=== PATIENT | female | born 1980 | race American Indian/Alaskan Native ===

== ENCOUNTER 2016-07-21 10:23 | Emergency (ER) | payer SELFPAY ==
[2016-07-21 11:05] LABS: Urine Drugs of Abuse Note Disclamer
--- NOTE | 2016-07-21 11:05 | Emergency Department Report ---
Chief Complaint: Dizziness Stated Complaint: CHEST PAIN Time Seen by Provider: 07/21/16 10:58 - HPI History of Present Illness: 35-year-old female presents today with heart fluttering 4 days that comes and goes. Positive for dizziness today. Positive for shortness of breath. Denies history of anxiety. Denies chest pain, abdominal pain, nausea, vomiting. - ROS Review of Systems: Per HPI - Exam Vital Signs: Vital Signs 07/21/16 10:36 Temperature 98.2 F Pulse Rate 80 Respiratory 20 Rate Blood Pressure 119/81 O2 Sat by Pulse 100 Oximetry Physical Exam: General: 35-year-old female in mild distress. Well-developed, well-nourished. CV: Regular rate and rhythm. Lungs: Clear to auscultation bilaterally. MSE screening note: Focused history and physical exam performed. Due to findings the following was ordered: ED Disposition for MSE Condition: Stable Referrals: PRIMARY CARE, [Primary Care Provider] - 3-5 Days
[2016-07-21 11:26] LABS: Basophils % (Auto) 1.4 % (0.0-1.8); Eosinophils % (Auto) 5.7 % (0.0-4.3); Hematocrit 38.5 % (30.3-42.9); Hemoglobin 12.5 gm/dl (10.1-14.3); Mean Corpuscular HGB Conc 33 % (30-34); Mean Corpuscular Hemoglobin 30 pg (28-32); Mean Corpuscular Volume 91 fl (79-97); Platelet Count 181 K/mm3 (140-440); Red Blood Count 4.23 M/mm3 (3.65-5.03); Red Cell Distribution Width 13.8 % (13.2-15.2); White Blood Count 6.7 K/mm3 (4.5-11.0)
[2016-07-21 11:27] LABS: Bilirubin,Urine NEG (Negative); Blood,Urine NEG (Negative); Ketones,Urine NEG (Negative); Leukocyte Esterase,Urine NEG (Negative); Mucus,Urine FEW /HPF; Nitrite,Urine NEG (Negative); Protein,Urine <15 mg/dL mg/dL (Negative); Urobilinogen,Urine < 2.0 mg/dL (<2.0)
[2016-07-21 11:33] LABS: Anion Gap 16 mmol/L; BUN/Creatinine Ratio 14.28; Blood Urea Nitrogen 10 mg/dL (7-17); Calcium 9.3 mg/dL (8.4-10.2); Carbon Dioxide 25 mmol/L (22-30); Chloride 103.2 mmol/L (98-107); Glucose 92 mg/dL (65-100); Potassium 4.6 mmol/L (3.6-5.0); Sodium 140 mmol/L (137-145)
--- NOTE | 2016-07-21 12:07 | XRay Report ---
Chest 2 views: History: Anxiety. Findings: Normal cardiomediastinal silhouette. Trachea is midline. No consolidation, pneumothorax or pleural effusion. Impression: No acute cardiopulmonary findings.
--- NOTE | 2016-07-21 19:11 | Emergency Department Report ---
HPI - General Chief Complaint: Dizziness Time Seen by Provider: 07/21/16 18:18 - HPI HPI: The patient is a 35-year-old female presents for evaluation of chest pain. The patient reports chest pain for the past 4 days, one off, pounding in quality, midsternal in location, 10/10 in severity when present, lasting for constant periods of 3-5 minutes at a time, self-resolving. The patient states that she believes her pain is secondary to anxiety. The patient denies trauma to the chest, fever, neck pain, parasthesias, dyspnea, cough, hemoptysis, palpitations , dizziness, syncope, unilateral leg swelling, calf muscle pain. Patient also denies cocaine or other stimulant use, history of DVT or PE, recent immobilization, or history of cancer. ED Past Medical Hx - Past Medical History Previous Medical History?: Yes Additional medical history: BOILS - Surgical History Past Surgical History?: Yes Additional Surgical History: c section - Social History Smoking Status: Current Every Day Smoker Substance Use Type: Alcohol - Medications Home Medications: Home Medications Medication Instructions Recorded Confirmed Last Taken Type Diazepam Tab [Valium] 2 mg PO Q8HR PRN #10 tablet 07/21/16 Unknown Rx ED Review of Systems ROS: Stated complaint: CHEST PAIN Other details as noted in HPI Constitutional: denies: fever ENT: denies: throat or neck pain Respiratory: denies: cough, shortness of breath Cardiovascular: reports chest pain Endocrine: denies unexplained weight loss or gain Gastrointestinal: denies: abdominal pain, nausea Genitourinary: denies: dysuria Musculoskeletal: denies: leg swelling Skin: denies: rash Neurological: denies: headache Hematological/Lymphatic: denies: easy bleeding or easy bruising Psych: denies sadness or hopelessness Physical Exam - Physical Exam Vital Signs: Vital Signs 07/21/16 07/21/16 07/21/16 10:36 18:44 18:45 Temperature 98.2 F 98.6 F Pulse Rate 80 74 Respiratory 20 16 16 Rate Blood Pressure 119/81 Blood Pressure 134/87 [Right] O2 Sat by Pulse 100 100 Oximetry Physical Exam: General: well-nourished, well-developed, no acute distress Head: Normocephalic, atraumatic Eyes: normal sclera ENT: Mucous membranes are pink and moist Neck: trachea midline, neck supple, No neck stiffness, no cervical adenopathy Respiratory: Breath sounds equal bilaterally, no wheezing, rales, or rhonchi Cardio: S1 and S2 present, no murmurs, rubs, gallops, capillary refill is brisk Abdomen: Normoactive bowel sounds, soft abdomen, no rigidity, no guarding or rebound tenderness Chest WALL/Back: No tenderness to palpation of the chest wall, no CVA tenderness with percussion Musc: No pitting edema Skin: No rash Neuro: no facial drooping, normal speech Psych: Normal affect ED Course Vital Signs 07/21/16 07/21/16 07/21/16 10:36 18:44 18:45 Temperature 98.2 F 98.6 F Pulse Rate 80 74 Respiratory 20 16 16 Rate Blood Pressure 119/81 Blood Pressure 134/87 [Right] O2 Sat by Pulse 100 100 Oximetry ED Medical Decision Making - Lab Data Result diagrams: 07/21/16 11:05 07/21/16 11:05 - Medical Decision Making The patient was seen and examined by myself. The patient is placed on a color television console monitor and continuous pulse ox. On initial evaluation, the patient was found to be in no distress. EKG was negative for findings suggestive of acute cardiac infarct. Labs and imaging are obtained. The patient is given a tablet of Valium for her chest pain. Chest x-ray is negative for pneumothorax, focal consolidation, pulmonary vascular congestion, pleural effusion, or other obvious acute cardiopulmonary disease process. Lab results were non-concerning including levels of troponin, WBC, hemoglobin, hematocrit, electrolytes, renal function. The patient was reevaluated and reported that their symptoms were markedly improved. As the patient has a ALTAF risk score less than 2, and a well 's score less than 2, the patient is at low risk of ACS or pulmonary emboli etiology of their symptoms. The patient is stable for discharge with outpatient follow-up. The patient is given follow-up and return instructions. The patient expressed understanding and agreed with the plan. The patient is discharged in stable condition. Critical care attestation.: If time is entered above; I have spent that time in minutes in the direct care of this critically ill patient, excluding procedure time. ED Disposition Clinical Impression: Acute chest pain Disposition: DISCHARGED TO HOME OR SELFCARE Is pt being admited?: No Does the pt Need Aspirin: No Condition: Stable Instructions: Chest Pain (ED) Referrals: PRIMARY CARE, [Primary Care Provider] - 3-5 Days Time of Disposition: 18:58
[2016-07-21] MEDS ORDERED: VALIUM PO ONE (19:30)
[2016-07-21 19:49] VITALS: BP 131/92
== END 2016-07-21 19:47 | disposition home or self-care (01) ==
LOC: ED 10:23
DX: R07.9 Chest pain, unspecified (principal); F17.200 Nicotine dependence, unspecified, uncomplicated
CPT/HCPCS: 36415; 71020; 80048; 80307; 81001; 81025; 84484; 85025; 93005; 93010; 99285; G0480; 80320